=== PATIENT | female | born 1970 | race Caucasian/White ===

== ENCOUNTER → 2021-05-04 | Day surgery (SDC) | payer OTHER ==
[~2021-05-04] VITALS: Ht 165.1 cm; Wt 61.2 kg
[~2021-05-04] MED LIST: MOTRIN600 MG PO; MULTI FOR HER1 EACH PO
[2021-05-04 11:22] LABS: HCG (URINE) SCREEN NEGATIVE (NEGATIVE)
== END | disposition home or self-care (01) ==
LOC: FAS 09:50
PROVIDERS: Anesthesiology
DX: Z12.11 Encounter for screening for malignant neoplasm of colon (principal); N93.0 Postcoital and contact bleeding; F41.9 Anxiety disorder, unspecified; F17.200 Nicotine dependence, unspecified, uncomplicated; Z90.5 Acquired absence of kidney; Z88.8 Allergy status to other drugs, medicaments and biological substances; Z85.828 Personal history of other malignant neoplasm of skin; Z80.1 Family history of malignant neoplasm of trachea, bronchus and lung; Z79.1 Long term (current) use of non-steroidal anti-inflammatories (NSAID); Z79.899 Other long term (current) drug therapy
CPT/HCPCS: 74270; 84703; J1610; J2704; J7120